=== PATIENT | male | born 2000 | race Two or more races ===

== ENCOUNTER 2024-12-14 00:05 | Emergency (ER) | payer MEDICAID ==
[~2024-12-14] VITALS: Ht 185.4 cm; Wt 101.6 kg
[2024-12-14 00:49] VITALS: BP 127/81; PULSE 65; RESP 14; TEMP 97.8; O2SAT 98
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
== END 2024-12-14 02:01 | disposition home or self-care (01) ==
LOC: ER 00:07
DX: S70.11XA Contusion of right thigh, initial encounter (principal); R51.9 Headache, unspecified; V43.52XA Car driver injured in collision with other type car in traffic accident, initial encounter; Y93.89 Activity, other specified; Y92.89 Other specified places as the place of occurrence of the external cause; Y99.8 Other external cause status
CPT/HCPCS: 99282